=== PATIENT | male | born 1965 | race Caucasian/White ===

== ENCOUNTER 2017-03-24 07:09 | Inpatient (IN) | payer OTHER ==
[2017-03-24] MEDS ORDERED: Scopolamine 1.5 MG Transdermal Patch TOP ONE (08:39)
[2017-03-24] MEDS ORDERED: Propofol 200 MG/20 ML SDV ONE ×2 (08:51→10:05)
[2017-03-24] MEDS ORDERED: fentaNYL 250 MCG/5 ML SDV ONE (08:51)
[2017-03-24] MEDS ORDERED: Lidocaine 2% 5 ML SDV ONE (08:51)
[2017-03-24] MEDS ORDERED: Midazolam 1 MG/ML 2 ML SDV ONE (08:51)
[2017-03-24] MEDS ORDERED: ePHEDrine 50 MG/ML SDV ONE (08:52)
--- NOTE | 2017-03-24 08:52 | PCM.PREANE ---
Preanesthetic Assessment - Procedure Proposed Procedure: Left hip replacement - Anesthesia/Transfusion/Family Hx Anesthesia History: Prior Anesthesia Without Reaction Transfusion History: No Prior Transfusion(s) Intubation History: Unknown - Review of Systems Pulmonary: No Symptoms Cardiovascular: Other (hypertension - treated ) Gastrointestinal: Nausea (with anesthetics - see orders) Neurological: Other (right shoulder pain) Other: Reports: Diabetes (took insulin last pm (20u lantus)), Depression, Anxiety - Physical Assessment Height: 6 ft Weight: 289 lb ASA Class: 3 Mental Status: Alert & Oriented x3 Airway Class: Mallampati = 2 Dentition: Reports: Normal Dentition Thyro-Mental Finger Breadths: 3 Mouth Opening Finger Breadths: 3 ROM/Head Extension: Full Lungs: Clear to auscultation, Normal respiratory effort Cardiovascular: Regular Rate, Regular Rhythm, No Murmurs - Lab Values: Laboratory Last Values POC Glucose 148 mg/dL (60-110) H 03/24/17 07:32 Blood Type A NEGATIVE 03/24/17 07:32 Antibody Screen NEGATIVE 03/24/17 07:32 - Allergies Allergies/Adverse Reactions: Allergies Allergy/AdvReac Type Severity Reaction Status Date / Time Sulfa (Sulfonamide Allergy Rash Verified 12/10/16 17:24 Antibiotics) - Blood Blood Available: Yes Product(s) Available: PRBC - Acknowledgements Anesthesia Type Planned: General Anesthesia Pt an Appropriate Candidate for the Planned Anesthesia: Yes Alternatives and Risks of Anesthesia Discussed w Pt/Guardian: Yes Pt/Guardian Understands and Agrees with Anesthesia Plan: Yes PreAnesthesia Questionnaire - Past Health History Medical/Surgical History: Denies Medical/Surgical History HEENT History: Reports: Other (see below) Other HEENT History: wears glasses Cardiovascular History: Reports: High cholesterol, Hypertension Gastrointestinal History: Reports: Other (see below) Other Gastrointestinal History: occasional heartburn Genitourinary History: Reports: Other (see below) Other Genitourinary History: hx scrotal abscess Musculoskeletal History: Reports: Osteoarthritis Neurological History: Reports: Concussion Psychiatric History: Reports: Anxiety Endocrine/Metabolic History: Reports: Diabetes, type II, Obesity/BMI 30+ - Infectious Disease History Infectious Disease History: Reports: Chicken pox - Past Surgical History Head Surgeries/Procedures: Reports: None Cardiovascular Surgical History: Reports: None GI Surgical History: Reports: Colonoscopy Musculoskeletal Surgical History: Reports: Knee replacement, Shoulder surgery Other Musculoskeletal Surgeries/Procedures:: jihan knee arthroscopies, knee replacement - SUBSTANCE USE Smoking Status *Q: Former Smoker Tobacco Use Within Last Twelve Months: No Second Hand Smoke Exposure: No Days Per Week of Alcohol Use: 0 Recreational Drug Use History: No - HOME MEDS Home Medications: Home Meds Aspirin [Caitlin Chewable Aspirin] 81 mg PO BEDTIME 02/23/15 [History] FLUoxetine [PROzac] 20 mg PO BID 02/23/15 [History] Lisinopril 20 mg PO DAILY 02/23/15 [History] Metoprolol Succinate 50 mg PO DAILY 02/23/15 [History] Canagliflozin/Metformin HCl [Invokamet 50-1,000 mg Tablet] 1 each PO BID [History] Insulin Glarg,Human.Rec.Analog [LantUS Solostar] 20 unit SUBCUT BEDTIME [History] atorvaSTATin Calcium [Atorvastatin Calcium] 80 mg PO BEDTIME 12/10/16 [History] Ascorbic Acid [Vitamin C] 500 mg PO DAILY 12/23/16 [History] Fenofibrate 160 mg PO DAILY 12/23/16 [History] Multivitamin [Multivitamins] 1 tab PO DAILY 12/23/16 [History] - CURRENT (IN HOUSE) MEDS Current Meds: Current Medications Lactated Ringer's (Ringers, Lactated) 1,000 mls @ 100 mls/hr IV ASDIRECTED LIZZY Cefazolin Sodium/Dextrose 2 gm (/ Premix) 50 mls @ 100 mls/hr IV ONETIME ONE Stop: 03/24/17 09:29 Discontinued Medications Scopolamine (Transderm-Scop) 1.5 mg TOP ONETIME ONE Stop: 03/24/17 08:40 Tranexamic Acid (Cyklokapron) Confirm Administered Dose 2,000 mg .ROUTE .STK- MED ONE Stop: 03/23/17 14:58
[2017-03-24] MEDS ORDERED: Lactated Ringers 1,000 ML IV SCH (09:00)
[2017-03-24] MEDS ORDERED: ceFAZolin 2 GM in Premix Bag 1 BAG IV ONE (09:00)
[2017-03-24] MEDS ORDERED: Phenylephrine/Normal Saline 100 MCG/ML 10 ML Syringe ONE (09:27)
[2017-03-24] MEDS ORDERED: Dermabond Prineo 1 Tube ONE (09:48)
[2017-03-24] MEDS ORDERED: HYDROmorphone 2 MG/ML Syringe ONE (09:56)
--- NOTE | 2017-03-24 11:05 | PCM.OPNOTE ---
- General Post-Op/Procedure Note Date of Surgery/Procedure: 03/24/17 Operative Procedure(s): left anterior total hip arthroplasty Findings: severe OA Pre Op Diagnosis: left osteoarthritis Post-Op Diagnosis: same Anesthesia Technique: General ET tube Primary Surgeon: Victorino Herman Mai Micro Photographer: Ruth Ann Matthews Pathology: femoral head EBL in mLs: 500 Complications: none Condition: Good
[2017-03-24] MEDS ORDERED: Ondansetron 4 MG/2 ML SDV IV PRN (11:12)
[2017-03-24] MEDS ORDERED: Aluminum Hydroxide/Magnesium Hydroxide/Simethicone Susp 30 ML Cup PO PRN (11:12)
[2017-03-24] MEDS ORDERED: Ketorolac 15 MG/ML SDV IVPUSH PRN (11:12)
[2017-03-24] MEDS ORDERED: Bisacodyl 10 MG Supp RECTAL PRN (11:12)
[2017-03-24] MEDS: fentaNYL 100 MCG/2 ML SDV IVPUSH PRN ×4 (11:23→11:49)
--- NOTE | 2017-03-24 12:08 | PCM.POSTAN ---
POST ANESTHESIA ASSESSMENT - MENTAL STATUS Mental Status: alert, oriented - RESPIRATORY Respiratory Status: respiratory rate WNL, airway patent, O2 saturation stable - CARDIOVASCULAR CV Status: pulse rate WNL, blood pressure stable - GASTROINTESTINAL GI Status: no symptoms - PAIN Pain Score: 7 - POST OP HYDRATION Hydration Status: adequate & stable - OBSERVATIONS Free Text/Narrative:: no anesthesia problems
[2017-03-24] MEDS: Morphine 10 MG/ML Syringe IVPUSH PRN ×3 (12:27→21:34)
[2017-03-24] MEDS: Acetaminophen/HYDROcodone 325-5 MG Tab PO PRN ×3 (12:27→23:35)
--- NOTE | 2017-03-24 14:51 | PCM.CONS ---
H&P History of Present Illness - General Date of Service: 03/24/17 Admit Problem/Dx: Admission Diagnosis/Problem Admission Diagnosis/Problem Osteoarthritis Source of Information: Patient, Family ( at bedside) History Limitations: Reports: No limitations - History of Present Illness Initial Comments - Free Text/Narative: This 51 year old male with pmh of HTN, dyslipidemia, DM type 2, controlled,, anxiety and depression. He was admitted today for L anterior hip replacement with Dr. Woodson. Hospitalist service consulted due to HTN and DM type 2 management. He has returned from the PACU feeling well. Has some intermittently L hip pain. Denies any chest pain, SOB or palpitations. No N/V. at bedside who helps with history PCP, Dr Paulina Mak. - Related Data Allergies/Adverse Reactions: Allergies Allergy/AdvReac Type Severity Reaction Status Date / Time Sulfa (Sulfonamide Allergy Rash Verified 12/10/16 17:24 Antibiotics) Home Medications: Home Meds Aspirin [Caitlin Chewable Aspirin] 81 mg PO BEDTIME 02/23/15 [History] FLUoxetine [PROzac] 20 mg PO BID 02/23/15 [History] Lisinopril 20 mg PO DAILY 02/23/15 [History] Metoprolol Succinate 50 mg PO DAILY 02/23/15 [History] Canagliflozin/Metformin HCl [Invokamet 50-1,000 mg Tablet] 1 each PO BID [History] Insulin Glarg,Human.Rec.Analog [LantUS Solostar] 20 unit SUBCUT BEDTIME [History] atorvaSTATin Calcium [Atorvastatin Calcium] 80 mg PO BEDTIME 12/10/16 [History] Ascorbic Acid [Vitamin C] 500 mg PO DAILY 12/23/16 [History] Fenofibrate 160 mg PO DAILY 12/23/16 [History] Multivitamin [Multivitamins] 1 tab PO DAILY 12/23/16 [History] Past Medical History - Past Health History Medical/Surgical History: Denies Medical/Surgical History HEENT History: Reports: Other (see below) Other HEENT History: wears glasses Cardiovascular History: Reports: High cholesterol, Hypertension. Denies: Afib, Blood clots/VTE/DVT, CAD, Heart Failure, PA Respiratory History: Reports: None. Denies: Asthma, COPD Gastrointestinal History: Reports: Other (see below) Other Gastrointestinal History: occasional heartburn Genitourinary History: Reports: Other (see below). Denies: Chronic renal insuffiency Other Genitourinary History: hx scrotal abscess Musculoskeletal History: Reports: Osteoarthritis Neurological History: Reports: Concussion Psychiatric History: Reports: Anxiety, Depression Endocrine/Metabolic History: Reports: Diabetes, type II, Obesity/BMI 30+ - Infectious Disease History Infectious Disease History: Reports: Chicken pox - Past Surgical History Head Surgeries/Procedures: Reports: None Cardiovascular Surgical History: Reports: None GI Surgical History: Reports: Colonoscopy Musculoskeletal Surgical History: Reports: Knee replacement, Shoulder surgery Other Musculoskeletal Surgeries/Procedures:: jihan knee arthroscopies, knee replacement Social & Family History - Family History Family Medical History: Noncontributory - Tobacco Use Smoking Status *Q: Former Smoker Second Hand Smoke Exposure: No - Caffeine Use Caffeine Use: Reports: Coffee Caffeine Use Comment: 2 cups/day - Alcohol Use Days Per Week of Alcohol Use: 0 - Recreational Drug Use Recreational Drug Use: No H&P Review of Systems - Review of Systems: Review Of Systems: ROS reveals no pertinent complaints other than HPI. General: Reports: no symptoms. Denies: fever, malaise HEENT: Reports: no symptoms. Denies: post nasal drip, sinus congestion, sore throat Pulmonary: Reports: No Symptoms. Denies: Shortness of Breath, Wheezing, Cough Cardiovascular: Reports: no symptoms. Denies: chest pain, palpitations, edema Gastrointestinal: Reports: No symptoms. Denies: Abdominal pain, Black stool, Bloody stool, Diarrhea Genitourinary: Reports: no symptoms. Denies: dysuria, frequency, burning Musculoskeletal: Reports: joint pain (L hip pain post-operatively) Skin: Reports: no symptoms Psychiatric: Reports: no symptoms Neurological: Reports: No Symptoms Hematologic/Lymphatic: Reports: no symptoms Immunologic: Reports: no symptoms Exam - Exam Exam: See Below - Vital Signs Vital Signs: Last Vital Signs Temp 97.7 F 03/24/17 12:30 Pulse 106 H 03/24/17 14:00 Resp 18 03/24/17 14:00 BP 126/72 03/24/17 14:00 Pulse Ox 96 03/24/17 14:00 Weight: 131.088 kg - Exam Quality Assessment: supplemental oxygen, DVT prophylaxis General: alert, oriented, 4 HEENT: Conjunctiva clear, EACs clear, EOMI, Hearing intact, Mucosa moist & pink , Nares patent, Posterior pharynx clear Lungs: Clear to auscultation, Normal respiratory effort Cardiovascular: regular rate, regular rhythm, normal S1, normal S2. No: irregular rhythm Abdomen: normal bowel sounds Extremities: normal inspection, normal pulses Skin: incision (dresing C/D/I) Neuro Extensive - Mental Status: alert, oriented x3, normal mood/affect, normal cognition Neuro Extensive - Motor, Sensory, Reflexes: CN II-XII intact, normal gait, normal reflexes Psychiatric: alert, normal affect, normal mood - Patient Data Lab Results last 24 hrs: Laboratory Results - last 24 hr 03/24/17 03/24/17 03/24/17 Range/Units 07:32 07:32 12:39 POC Glucose 148 H 178 H (60-110) mg/dL Blood Type A NEGATIVE Antibody Screen NEGATIVE Consult PN Assessment/Plan Procedures: Procedures BLOOD CULTURE FOR BACTERIA (02/23/15) CHEST X-RAY 2VW FRONTAL&LATL (03/03/17) COLONOSCOPY W/LESION REMOVAL (12/25/16) COMPLETE CBC W/AUTO DIFF WBC (03/03/17) COMPREHEN METABOLIC PANEL (12/02/16) CULTURE AEROBIC IDENTIFY (02/23/15) CULTURE OTHR SPECIMN AEROBIC (02/23/15) DRAIN/INJ JOINT/BURSA W/O US (11/16/15) ELECTROCARDIOGRAM TRACING (03/03/17) EMERGENCY DEPT VISIT (12/10/16) EMERGENCY DEPT VISIT (02/23/15) GLUCOSE BLOOD TEST (12/25/16) GLYCOSYLATED HEMOGLOBIN TEST (03/03/17) LIPID PANEL (12/02/16) METABOLIC PANEL TOTAL CA (03/03/17) MICROALBUMIN SEMIQUANT (12/02/16) MICROBE SUSCEPTIBLE MARISELA (02/23/15) NEEDLE LOCALIZATION BY XRAY (11/16/15) PROTHROMBIN TIME (03/03/17) ROUTINE VENIPUNCTURE (03/03/17) THER/PROPH/DIAG INJ SC/IM (12/10/16) THER/PROPH/DIAG IV INF INIT (02/23/15) TISSUE EXAM BY PATHOLOGIST (12/25/16) TX/PRO/DX INJ NEW DRUG ADDON (02/23/15) URINALYSIS AUTO W/SCOPE (03/03/17) US EXAM SCROTUM (02/23/15) VASCULAR STUDY (02/23/15) X-RAY EXAM KNEE 4 OR MORE (11/01/15) X-RAY EXAM OF HIP (11/15/15) X-RAY EXAM OF PELVIS (11/15/15) X-RAY EXAM OF SHOULDER (01/15/17) (1) S/P total hip arthroplasty SNOMED Code(s): 815084831550, 073006525341 Code(s): Z96.649 - PRESENCE OF UNSPECIFIED ARTIFICIAL HIP JOINT Current Visit: Yes Qualifiers: Laterality: left Qualified Code(s): Z96.642 - Presence of left artificial hip joint Assessment:: anterior (2) HTN (hypertension) SNOMED Code(s): 52552640 Code(s): I10 - ESSENTIAL (PRIMARY) HYPERTENSION Current Visit: Yes Qualifiers: Hypertension type: essential hypertension Qualified Code(s): I10 - Essential (primary) hypertension (3) Anxiety SNOMED Code(s): 39249379 Code(s): F41.9 - ANXIETY DISORDER, UNSPECIFIED Current Visit: Yes (4) Depressed SNOMED Code(s): 99026036 Code(s): F32.9 - MAJOR DEPRESSIVE DISORDER, SINGLE EPISODE, UNSPECIFIED Current Visit: Yes Qualifiers: Depression Type: unspecified Qualified Code(s): F32.9 - Major depressive disorder, single episode, unspecified (5) Dyslipidemia SNOMED Code(s): 266152771 Code(s): E78.5 - HYPERLIPIDEMIA, UNSPECIFIED Current Visit: Yes (6) Diabetes mellitus SNOMED Code(s): 39832948 Code(s): E11.9 - TYPE 2 DIABETES MELLITUS WITHOUT COMPLICATIONS Current Visit: No Qualifiers: Diabetes mellitus type: type 2 Diabetes mellitus complication status: without complication Diabetes mellitus block hacker insulin use: with penitentiary use Qualified Code(s): E11.9 - Type 2 diabetes mellitus without complications ; Z79.4 - senior care (current) use of insulin (7) Obesity (BMI 35.0-39.9 without comorbidity) SNOMED Code(s): 666316520, 517951738 Code(s): E66.01 - MORBID (SEVERE) OBESITY DUE TO EXCESS CALORIES Current Visit: No Problem List Initiated/Reviewed/Updated: Yes My Orders last 24 hours: My Active Orders 03/24/17 17:00 Insulin Aspart [NovoLOG] See Protocol SUBCUT TIDAC Plan: This 51 year old male admitted for L anterior total hip arthroplasty 1. S/P L anterior total hip arthroplasty: Orders per Dr Woodson 2. HTN: Continue Lisinopril and Metoprolol. Did stop Toradol due to BUN 37 and Cr 1.2 pre-operatively. Will monitor BMP. 3. DM type 2: Hold Invokamet, may restart on discharge. Continue Lantus at bedtime and add Novolog SSI TIDAC 4. Dyslipidemia: Continue Atorvastatin and Fenofibrate. VTE: Per Ortho when deemed appropriate. Dispo: Per Ortho.
[2017-03-24 16:41] LABS: CHLORIDE,CL 103 mmol/L (98-110); SODIUM,NA 137 mmol/L (136-146)
[2017-03-24] MEDS: Insulin Aspart 100 Units/ML 3 ML Pen SUBCUT SCH (17:12)
[2017-03-24] MEDS: ceFAZolin 2 GM in Premix Bag 1 BAG IV SCH (17:14)
[2017-03-24] MEDS ORDERED: Sodium Chloride 0.9% 2.5 ML Syringe FLUSH PRN (17:18)
[2017-03-24] MEDS ORDERED: Sodium Chloride 0.9% 10 ML Syringe FLUSH PRN (17:18)
[2017-03-24] MEDS ORDERED: CANAGLIFLOZIN PO SCH (21:00)
[2017-03-24] MEDS ORDERED: METFORMIN HCL PO SCH (21:00)
[2017-03-24] MEDS: Insulin Glargine,Human Rec. Analog 100 Units/ML 3 ML Pen SUBCUT SCH (21:43)
[2017-03-24] MEDS: atorvaSTATin 40 MG Tab PO SCH (21:45)
[2017-03-24] MEDS: FLUoxetine 20 MG Cap PO SCH (21:45)
[2017-03-24] MEDS: Docusate Sodium 100 MG Cap PO SCH (21:45)
[2017-03-25] MEDS: ceFAZolin 2 GM in Premix Bag 1 BAG IV SCH (02:13)
[2017-03-25] MEDS: Acetaminophen/HYDROcodone 325-5 MG Tab PO PRN ×4 (04:24→19:12)
[2017-03-25 05:13] LABS: CHLORIDE,CL 98 mmol/L (98-110); SODIUM,NA 133 mmol/L (136-146)
--- NOTE | 2017-03-25 06:27 | OR ---
SURGEON: Victorino Woodson MD DATE OF PROCEDURE: 03/24/2017 PATIENT PORTAL REPRESENTATIVE: LINDSEY Kenny. PREOPERATIVE DIAGNOSIS: Left hip osteoarthritis. POSTOPERATIVE DIAGNOSIS: Left hip osteoarthritis. OPERATION PERFORMED: Left anterior total hip arthroplasty. ANESTHESIA: General. ESTIMATED BLOOD LOSS: 500 mL. SPECIMENS: Femoral head. COMPLICATIONS: None. IMPLANTS: Meagan Continuum trabecular metal shell with cluster holes, 60 mm outer diameter, Vivacit-E neutral liner, 36 mm inner diameter, Fitmore Hip Stem, uncemented B extended offset size 3, BIOLOX delta ceramic femoral head, 36 mm +3.5 neck length. INDICATIONS: The patient is a 51-year-old male with severe arthritis. 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 He has failed conservative management, treated with modification therapy and injections. He has chronic pain on a daily basis hindering his activities. He wished to undergo total hip replacement. He understands the risks, benefits, complications, including but limited to infection, neurovascular injury, continued pain, DVT, PE, stroke, VT, , leg-length discrepancy, fracture dislocation, and he wished to proceed. placed with tracking, reduction, as well as closing. PROCEDURE IN DETAIL: The patient was seen in the preop area. Operative extremity was marked. He was transferred to the operating room and placed supine on the Farrar table. General anesthesia was induced and endotracheal tube was placed. He received preop antibiotics of Ancef. He also received 2 g of TXA. The legs were placed in the leg bars with narrow perineal post. Left hip was prepped and draped in sterile fashion using alcohol followed by ChloraPrep with Ioban covering. A formal time- out was taken to identify correct patient, procedure, and extremity. A 10 cm incision starting just lateral to the ASIS, going obliquely down the femur was made. Dissection was carried down to subcutaneous tissues. Hemostasis was obtained. The fascia overlying the TFL was opened. The interval between the TFL and sartorius and deep between the abductors and rectus was opened. The anterior vessels were coagulated and the vastus fascia was opened. A deep Luis retractor was placed and then the capsule was held and with #2 FiberWire. The neck was cut from the saddle region to about 1 cm above the lesser trochanter and the head was removed. The remnants of labrum were removed. The patient was found to have severe osteoarthritis. The pulvinar was removed. Head measured 54 mm, and under fluoroscopic control after the bed, made sure that the pelvis was level. Sequential reaming from 53 up to 59 mm was made. medialize very much, we reamed superior medially to get excellent peripheral fit and the wound was irrigated and a trabecular metal shell cluster holes, 60 mm outer diameter was placed. The screw hole straight superiorly in 45 degrees of abduction and 10 degrees of anteversion. This had excellent press fit and the screw was not needed. Wound was irrigated, dried, and a neutral liner was impacted. Leg was then externally rotated, abducted, and extended with femoral lift was placed. The medial capsule was released. The superior capsule, obturator internus, and piriformis were released and a sequential was utilized. The hip was broached with the starter rasp with the size 3, size 4 sat very proud and so 3 was placed. It was trialed, we reduced to zero neck length. with size B not extended. Printed overlay technique showed offset to be decreased about 3-4 mm in the leg length to be approximately equal. Hip was then dislocated, it was rebroached up to a size 3 and a Fitmore B extended offset size [address] Following the marshall version it was trailed to reduce the zero neck length. This showed it to be 1-2 mm shorter than the opposite leg, but the offset to be equal, and there was a little shock with pulling on it. So therefore for stability a neck 36 mm diameter head was impacted. It was then reduced. The x-ray showed that the canal to be filled with the stem. Wound was thoroughly irrigated. Two tag sutures were tied together. The fascia was closed with #1 Vicryl. Subcutaneous tissue was closed with a running 2-0 Stratafix. The skin was closed with running 4-0 Monocryl. Dermabond, tape, and Aquacel dressing was placed. The patient was extubated in the operating room, transferred to the recovery room in stable condition. Sponge, needle counts were correct at the end of the case. There were no complications. PLAN: The patient will follow postop rehab protocol, taking aspirin for DVT prophylaxis. BENJAMIN BANDA /[id number]
[2017-03-25] MEDS: Insulin Aspart 100 Units/ML 3 ML Pen SUBCUT SCH ×3 (07:05→16:50)
--- NOTE | 2017-03-25 07:35 | PCM.SN ---
- Free Text/Narrative Note: S: More pain today, ambulated last night, no other issues. Tolerating PO, no cp/sob O: afebrile, vital signs stable, awake/alert dressing dlean/dry/intact, no swelling in leg. 2+ pedal pulse with normal sensation and motor in leg HGB 11.8 A/P: POD #1 left TOD with acute post-op blood loss anemia - full weight bearing, PT - SCDs, aspirin for DVT prophylaxis - plan home when able over next several days.
--- NOTE | 2017-03-25 08:11 | PCM.CONSN ---
- General Info Date of Service: 03/25/17 Admission Dx/Problem (Free Text): Admission Diagnosis/Problem Admission Diagnosis/Problem Osteoarthritis Subjective Update: Having more hip pain today. No complaints of chest pain or SOB. no palpitations. Functional Status: Reports: tolerating diet, ambulating, urinating - Review of Systems General: Reports: No Symptoms. Denies: Fever HEENT: Reports: no symptoms. Denies: sinus congestion, sore throat Pulmonary: Reports: no symptoms. Denies: shortness of breath, cough, sputum Cardiovascular: Reports: No Symptoms. Denies: Chest Pain, Edema Gastrointestinal: Reports: No symptoms. Denies: Abdominal pain, Nausea, Vomiting Neurological: Reports: No Symptoms Psychiatric: Reports: no symptoms - Patient Data Vitals - most recent: Last Vital Signs Temp 98.8 F 03/25/17 04:00 Pulse 102 H 03/25/17 04:00 Resp 18 03/25/17 04:00 BP 115/75 03/25/17 04:00 Pulse Ox 96 03/25/17 04:00 Weight - most recent: 131.088 kg I&O - last 24 hours: Intake & Output 03/24/17 03/25/17 03/25/17 22:59 06:59 14:59 Intake Total 1850 1250 Output Total 1100 Balance 1850 150 Lab Results last 24 hrs: Laboratory Results - last 24 hr 03/24/17 03/24/17 03/24/17 Range/Units 07:32 12:39 16:07 Hgb (13.0-17.0) g/dL Hct (38.0-50.0) % Sodium 137 (136-146) mmol/L Potassium 4.5 (3.5-5.1) mmol/L Chloride 103 (98-110) mmol/L Carbon Dioxide 22 (21-31) mmol/L BUN 24 H (6.0-23.0) mg/dL Creatinine 1.0 (0.6-1.5) mg/dL Est Cr Clr Drug Dosing 93.77 mL/min Estimated GFR (MDRD) > 60.0 ml/min Glucose 187 H (60-110) mg/dL POC Glucose 178 H (60-110) mg/dL Calcium 9.1 (8.8-10.8) mg/dL Total Bilirubin 1.1 (0.1-1.5) mg/dL AST 25 (5-40) IU/L ALT 22 (8-54) IU/L Alkaline Phosphatase 40 (40-150) Total Protein 6.6 (6.0-8.0) g/dL Albumin 4.3 (3.5-5.0) g/dL Globulin 2.3 (2.0-3.5) g/dL Albumin/Globulin Ratio 1.9 (1.3-2.8) Blood Type A NEGATIVE Antibody Screen NEGATIVE 03/24/17 03/24/17 03/25/17 Range/Units 16:11 21:01 04:20 Hgb 11.8 L (13.0-17.0) g/dL Hct 35.9 L (38.0-50.0) % Sodium (136-146) mmol/L Potassium (3.5-5.1) mmol/L Chloride (98-110) mmol/L Carbon Dioxide (21-31) mmol/L BUN (6.0-23.0) mg/dL Creatinine (0.6-1.5) mg/dL Est Cr Clr Drug Dosing mL/min Estimated GFR (MDRD) ml/min Glucose (60-110) mg/dL POC Glucose 192 H 149 H (60-110) mg/dL Calcium (8.8-10.8) mg/dL Total Bilirubin (0.1-1.5) mg/dL AST (5-40) IU/L ALT (8-54) IU/L Alkaline Phosphatase (40-150) Total Protein (6.0-8.0) g/dL Albumin (3.5-5.0) g/dL Globulin (2.0-3.5) g/dL Albumin/Globulin Ratio (1.3-2.8) Blood Type Antibody Screen 03/25/17 03/25/17 Range/Units 04:20 06:41 Hgb (13.0-17.0) g/dL Hct (38.0-50.0) % Sodium 133 L (136-146) mmol/L Potassium 4.4 (3.5-5.1) mmol/L Chloride 98 (98-110) mmol/L Carbon Dioxide 20 L (21-31) mmol/L BUN 22 (6.0-23.0) mg/dL Creatinine 1.1 (0.6-1.5) mg/dL Est Cr Clr Drug Dosing 85.24 mL/min Estimated GFR (MDRD) > 60.0 ml/min Glucose 160 H (60-110) mg/dL POC Glucose 227 H (60-110) mg/dL Calcium 8.7 L (8.8-10.8) mg/dL Total Bilirubin (0.1-1.5) mg/dL AST (5-40) IU/L ALT (8-54) IU/L Alkaline Phosphatase (40-150) Total Protein (6.0-8.0) g/dL Albumin (3.5-5.0) g/dL Globulin (2.0-3.5) g/dL Albumin/Globulin Ratio (1.3-2.8) Blood Type Antibody Screen Med Orders - Current: Current Medications Hydrocodone Bitart/Acetaminophen ([place] 325-5 Mg) 1 - 2 tab PO Q4H PRN PRN Reason: Pain Last Admin: 03/25/17 04:24 Dose: 2 tab Al Hydroxide/Mg Hydroxide (Mag-Al Plus) 30 ml PO Q4H PRN PRN Reason: indigestion Ascorbic Acid (Vitamin C) 500 mg PO DAILY [facility] Aspirin (Aspirin) 325 mg PO BID [facility] Atorvastatin Calcium (Lipitor) 80 mg PO BEDTIME [facility] Last Admin: 03/24/17 21:45 Dose: 80 mg Bisacodyl (Dulcolax) 10 mg RECTAL DAILY PRN PRN Reason: Constipation Docusate Sodium (Colace) 100 mg PO BID [facility] Last Admin: 03/24/17 21:45 Dose: 100 mg Fentanyl (Sublimaze) 50 mcg IVPUSH Q5M PRN PRN Reason: Pain (severe 7-10) Stop: 03/25/17 10:04 Last Admin: 03/24/17 11:49 Dose: 50 mcg Fluoxetine HCl (Prozac) 20 mg PO BID [facility] Last Admin: 03/24/17 21:45 Dose: 20 mg Insulin Aspart (Novolog) 0 unit SUBCUT TIDAC [facility] PRN Reason: Protocol Last Admin: 03/25/17 07:05 Dose: 2 unit Insulin Glargine (Lantus Solostar) 20 units SUBCUT BEDTIME [facility] Last Admin: 03/24/17 21:43 Dose: 20 units Lisinopril (Prinivil) 20 mg PO DAILY [facility] Metoprolol Succinate (Toprol Xl) 50 mg PO DAILY [facility] Morphine Sulfate (Morphine) 1 - 3 mg IVPUSH Q3H PRN PRN Reason: Pain Last Admin: 03/24/17 21:34 Dose: 3 mg Multivitamins/Minerals (Thera M Plus) 1 tab PO DAILY [facility] Ondansetron HCl (Zofran) 4 mg IV Q6HR PRN PRN Reason: NAUSEA/VOMITING Fenofibrate 160 Mg 1 each PO DAILY [facility] Sodium Chloride (Saline Flush) 10 ml FLUSH ASDIRECTED PRN PRN Reason: Keep Vein Open Sodium Chloride (Saline Flush) 2.5 ml FLUSH ASDIRECTED PRN PRN Reason: Keep Vein Open Discontinued Medications Ephedrine Sulfate (Ephedrine Sulfate) Confirm Administered Dose 50 mg .ROUTE .STK-MED ONE Stop: 03/24/17 08:53 Fentanyl (Sublimaze) Confirm Administered Dose 250 mcg .ROUTE .STK-MED ONE Stop: 03/24/17 08:52 Hydromorphone HCl (Dilaudid) Confirm Administered Dose 2 mg .ROUTE .STK-MED ONE Stop: 03/24/17 09:57 Lactated Ringer's (Ringers, Lactated) 1,000 mls @ 100 mls/hr IV ASDIRECTED [facility] Last Admin: 03/24/17 08:49 Dose: 100 mls/hr Cefazolin Sodium/Dextrose 2 gm (/ Premix) 50 mls @ 100 mls/hr IV ONETIME ONE Stop: 03/24/17 09:29 Last Admin: 03/24/17 12:40 Dose: Not Given Cefazolin Sodium/Dextrose 2 gm (/ Premix) 50 mls @ 100 mls/hr IV Q8H [facility] Stop: 03/25/17 01:59 Last Admin: 03/25/17 02:13 Dose: 100 mls/hr Ketorolac Tromethamine (Toradol) 15 mg IVPUSH Q6H PRN PRN Reason: Pain Stop: 03/25/17 09:00 Lidocaine (Xylocaine-Mpf 2%) Confirm Administered Dose 10 ml .ROUTE .STK-MED ONE Stop: 03/24/17 08:52 Midazolam HCl (Versed 1 Mg/Ml) Confirm Administered Dose 2 mg .ROUTE .STK-MED ONE Stop: 03/24/17 08:52 Octyl Cyanoacrylate (Dermabond Prineo) 1 applic .ROUTE .STK-MED ONE Stop: 03/24/17 09:49 Canagliflozin/Metformin Hcl [ Invokamet 50-1,000 Mg Tablet 1 each PO BID [facility] Phenylephrine HCl (Phenylephrine In Ns 100 Mcg/Ml) Confirm Administered Dose 1 mg .ROUTE .STK-MED ONE Stop: 03/24/17 09:28 Propofol (Diprivan 20 Ml) Confirm Administered Dose 400 mg .ROUTE .STK-MED ONE Stop: 03/24/17 08:52 Propofol (Diprivan 20 Ml) Confirm Administered Dose 200 mg .ROUTE .STK-MED ONE Stop: 03/24/17 10:06 Scopolamine (Transderm-Scop) 1.5 mg TOP ONETIME ONE Stop: 03/24/17 08:40 Last Admin: 03/24/17 08:52 Dose: 1.5 mg Tranexamic Acid (Cyklokapron) Confirm Administered Dose 2,000 mg .ROUTE .STK- MED ONE Stop: 03/23/17 14:58 - Exam General: alert, oriented, cooperative Lungs: Clear to auscultation, Normal respiratory effort Cardiovascular: Regular Rate, Regular Rhythm Abdomen: bowel sounds present, soft, no tenderness, no distension Extremities: no edema, normal pulses Consult PN Assessment/Plan Procedures: Procedures BLOOD CULTURE FOR BACTERIA (02/23/15) CHEST X-RAY 2VW FRONTAL&LATL (03/03/17) COLONOSCOPY W/LESION REMOVAL (12/25/16) COMPLETE CBC W/AUTO DIFF WBC (03/03/17) COMPREHEN METABOLIC PANEL (12/02/16) CULTURE AEROBIC IDENTIFY (02/23/15) CULTURE OTHR SPECIMN AEROBIC (02/23/15) DRAIN/INJ JOINT/BURSA W/O US (11/16/15) ELECTROCARDIOGRAM TRACING (03/03/17) EMERGENCY DEPT VISIT (12/10/16) EMERGENCY DEPT VISIT (02/23/15) GLUCOSE BLOOD TEST (12/25/16) GLYCOSYLATED HEMOGLOBIN TEST (03/03/17) LIPID PANEL (12/02/16) METABOLIC PANEL TOTAL CA (03/03/17) MICROALBUMIN SEMIQUANT (12/02/16) MICROBE SUSCEPTIBLE MARISELA (02/23/15) NEEDLE LOCALIZATION BY XRAY (11/16/15) PROTHROMBIN TIME (03/03/17) ROUTINE VENIPUNCTURE (03/03/17) THER/PROPH/DIAG INJ SC/IM (12/10/16) THER/PROPH/DIAG IV INF INIT (02/23/15) TISSUE EXAM BY PATHOLOGIST (12/25/16) TX/PRO/DX INJ NEW DRUG ADDON (02/23/15) URINALYSIS AUTO W/SCOPE (03/03/17) US EXAM SCROTUM (02/23/15) VASCULAR STUDY (02/23/15) X-RAY EXAM KNEE 4 OR MORE (11/01/15) X-RAY EXAM OF HIP (11/15/15) X-RAY EXAM OF PELVIS (11/15/15) X-RAY EXAM OF SHOULDER (01/15/17) (1) S/P total hip arthroplasty SNOMED Code(s): 323015896775, 117848900476 Code(s): Z96.649 - PRESENCE OF UNSPECIFIED ARTIFICIAL HIP JOINT Current Visit: Yes Qualifiers: Laterality: left Qualified Code(s): Z96.642 - Presence of left artificial hip joint (2) HTN (hypertension) SNOMED Code(s): 14092048 Code(s): I10 - ESSENTIAL (PRIMARY) HYPERTENSION Current Visit: Yes Qualifiers: Hypertension type: essential hypertension Qualified Code(s): I10 - Essential (primary) hypertension (3) Anxiety SNOMED Code(s): 77275750 Code(s): F41.9 - ANXIETY DISORDER, UNSPECIFIED Current Visit: Yes (4) Depressed SNOMED Code(s): 64755819 Code(s): F32.9 - MAJOR DEPRESSIVE DISORDER, SINGLE EPISODE, UNSPECIFIED Current Visit: Yes Qualifiers: Depression Type: unspecified Qualified Code(s): F32.9 - Major depressive disorder, single episode, unspecified (5) Dyslipidemia SNOMED Code(s): 200022330 Code(s): E78.5 - HYPERLIPIDEMIA, UNSPECIFIED Current Visit: Yes (6) Diabetes mellitus SNOMED Code(s): 92065666 Code(s): E11.9 - TYPE 2 DIABETES MELLITUS WITHOUT COMPLICATIONS Current Visit: No Qualifiers: Diabetes mellitus type: type 2 Diabetes mellitus complication status: without complication Diabetes mellitus mcfp insulin use: with terminal gauger use Qualified Code(s): E11.9 - Type 2 diabetes mellitus without complications ; Z79.4 - custodial (current) use of insulin (7) Obesity (BMI 35.0-39.9 without comorbidity) SNOMED Code(s): 900061469, 546465981 Code(s): E66.01 - MORBID (SEVERE) OBESITY DUE TO EXCESS CALORIES Current Visit: No Problem List Initiated/Reviewed/Updated: Yes My Orders last 24 hours: My Active Orders 03/24/17 17:00 Insulin Aspart [NovoLOG] See Protocol SUBCUT TIDAC 03/24/17 17:09 Blood Glucose Check, Bedside [RC] TIDAC Plan: This 51 year old male admitted for L anterior total hip arthroplasty 1. S/P L anterior total hip arthroplasty: Orders per Dr Woodson 2. HTN: Continue Lisinopril and Metoprolol. BMP WNL. 3. DM type 2: Hold Invokamet, may restart on discharge. Continue Lantus at bedtime and add Novolog SSI TIDAC 4. Dyslipidemia: Continue Atorvastatin and Fenofibrate. VTE: Per Ortho when deemed appropriate. Dispo: Per Ortho.
--- NOTE | 2017-03-25 08:41 | PCM48HPAN ---
Post Anesthesia Note - EVALUATION WITHIN 48HRS OF ANESTHETIC Vital Signs in Normal Range: Yes Patient Participated in Evaluation: Yes Respiratory Function Stable: Yes Airway Patent: Yes Cardiovascular Function Stable: Yes Hydration Status Stable: Yes Pain Control Satisfactory: Yes Nausea and Vomiting Control Satisfactory: Yes Mental Status Recovered: Yes - COMMENTS/OBSERVATIONS Free Text/Narrative:: Pt denies problems or questions on anesthesia. Did refuse pain medication last evening and realized he needs to comply with pain management plan to avoid spikes in pain level. Reports that scopolamine patch very effective for controlling nausea.
[2017-03-25] MEDS: Docusate Sodium 100 MG Cap PO SCH ×2 (09:32→20:56)
[2017-03-25] MEDS: Metoprolol Succinate 50 MG Tab.ER PO SCH (09:32)
[2017-03-25] MEDS: Aspirin 325 MG Tab PO SCH ×2 (09:32→20:56)
[2017-03-25] MEDS: Ascorbic Acid 500 MG Tab PO SCH (09:33)
[2017-03-25] MEDS: FLUoxetine 20 MG Cap PO SCH ×2 (09:33→20:56)
[2017-03-25] MEDS: Lisinopril 10 MG Tab PO SCH (09:33)
[2017-03-25] MEDS: Multivitamins with Iron/Calcium/Folic Acid/Minerals Tab PO SCH (10:52)
--- NOTE | 2017-03-25 15:06 | PCM.DCSUM1 ---
Discharge Summary - Hospital Course Free Text/Narrative:: patient was admitted and underwent uneventful total hip arthroplasty. Postoperatively he was admitted to the floor, his pain was controlled, his diet was advanced, he participated in therapy with weightbearing as tolerated. He did well and was subsequently discharged to home. - Discharge Data Discharge Date: 03/25/17 Discharge Disposition: Home, Self-Care 01 Condition: Good - Patient Summary/Data Operative Procedure(s) Performed: left anterior total hip arthroplasty Consults: Consultations 03/24/17 11:11 Consult to Physician [CONS] Routine 03/24/17 11:12 PT Evaluation and Treatment [CONS] Routine - Patient Instructions Diet: Usual Diet as Tolerated Activity: Apply Ice, As Tolerated, Full Weight Bearing, No Strenuous Activities Driving: Do Not Drive Showering/Bathing: May Shower Wound/Incision Care: Do NOT Change Dressing Notify Provider of: Fever, Swelling and Redness, Drainage - Discharge Plan Home Medications: Home Meds Aspirin [Caitlin Chewable Aspirin] 81 mg PO BEDTIME 02/23/15 [History] FLUoxetine [PROzac] 20 mg PO BID 02/23/15 [History] Lisinopril 20 mg PO DAILY 02/23/15 [History] Metoprolol Succinate 50 mg PO DAILY 02/23/15 [History] Canagliflozin/Metformin HCl [Invokamet 50-1,000 mg Tablet] 1 each PO BID [History] Insulin Glarg,Human.Rec.Analog [LantUS Solostar] 20 unit SUBCUT BEDTIME [History] atorvaSTATin Calcium [Atorvastatin Calcium] 80 mg PO BEDTIME 12/10/16 [History] Ascorbic Acid [Vitamin C] 500 mg PO DAILY 12/23/16 [History] Fenofibrate 160 mg PO DAILY 12/23/16 [History] Multivitamin [Multivitamins] 1 tab PO DAILY 12/23/16 [History] Referrals: Ruth Ann Matthews PA [Physician Machine Installer] - 04/03/17 8:45 am - Discharge Summary/Plan Comment DC Time >30 min.: No - Patient Data Vitals - Most Recent: Last Vital Signs Temp 36.3 C 03/25/17 12:00 Pulse 112 H 03/25/17 12:00 Resp 16 03/25/17 12:00 BP 120/70 03/25/17 12:00 Pulse Ox 94 L 03/25/17 12:00 Weight - Most Recent: 131.088 kg I&O - Last 24 hours: Intake & Output 03/25/17 03/25/17 03/25/17 06:59 14:59 22:59 Intake Total 1250 Output Total 1100 Balance 150 Lab Results - Last 24 hrs: Laboratory Results - last 24 hr 03/24/17 03/24/17 03/24/17 Range/Units 16:07 16:11 21:01 Hgb (13.0-17.0) g/dL Hct (38.0-50.0) % Sodium 137 (136-146) mmol/L Potassium 4.5 (3.5-5.1) mmol/L Chloride 103 (98-110) mmol/L Carbon Dioxide 22 (21-31) mmol/L BUN 24 H (6.0-23.0) mg/dL Creatinine 1.0 (0.6-1.5) mg/dL Est Cr Clr Drug Dosing 93.77 mL/min Estimated GFR (MDRD) > 60.0 ml/min Glucose 187 H (60-110) mg/dL POC Glucose 192 H 149 H (60-110) mg/dL Calcium 9.1 (8.8-10.8) mg/dL Total Bilirubin 1.1 (0.1-1.5) mg/dL AST 25 (5-40) IU/L ALT 22 (8-54) IU/L Alkaline Phosphatase 40 (40-150) Total Protein 6.6 (6.0-8.0) g/dL Albumin 4.3 (3.5-5.0) g/dL Globulin 2.3 (2.0-3.5) g/dL Albumin/Globulin Ratio 1.9 (1.3-2.8) 03/25/17 03/25/17 03/25/17 Range/Units 04:20 04:20 06:41 Hgb 11.8 L (13.0-17.0) g/dL Hct 35.9 L (38.0-50.0) % Sodium 133 L (136-146) mmol/L Potassium 4.4 (3.5-5.1) mmol/L Chloride 98 (98-110) mmol/L Carbon Dioxide 20 L (21-31) mmol/L BUN 22 (6.0-23.0) mg/dL Creatinine 1.1 (0.6-1.5) mg/dL Est Cr Clr Drug Dosing 85.24 mL/min Estimated GFR (MDRD) > 60.0 ml/min Glucose 160 H (60-110) mg/dL POC Glucose 227 H (60-110) mg/dL Calcium 8.7 L (8.8-10.8) mg/dL Total Bilirubin (0.1-1.5) mg/dL AST (5-40) IU/L ALT (8-54) IU/L Alkaline Phosphatase (40-150) Total Protein (6.0-8.0) g/dL Albumin (3.5-5.0) g/dL Globulin (2.0-3.5) g/dL Albumin/Globulin Ratio (1.3-2.8) 03/25/17 Range/Units 11:25 Hgb (13.0-17.0) g/dL Hct (38.0-50.0) % Sodium (136-146) mmol/L Potassium (3.5-5.1) mmol/L Chloride (98-110) mmol/L Carbon Dioxide (21-31) mmol/L BUN (6.0-23.0) mg/dL Creatinine (0.6-1.5) mg/dL Est Cr Clr Drug Dosing mL/min Estimated GFR (MDRD) ml/min Glucose (60-110) mg/dL POC Glucose 170 H (60-110) mg/dL Calcium (8.8-10.8) mg/dL Total Bilirubin (0.1-1.5) mg/dL AST (5-40) IU/L ALT (8-54) IU/L Alkaline Phosphatase (40-150) Total Protein (6.0-8.0) g/dL Albumin (3.5-5.0) g/dL Globulin (2.0-3.5) g/dL Albumin/Globulin Ratio (1.3-2.8) Med Orders - Current: Current Medications Hydrocodone Bitart/Acetaminophen ([place] 325-5 Mg) 1 - 2 tab PO Q4H PRN PRN Reason: Pain Last Admin: 03/25/17 14:08 Dose: 2 tab Al Hydroxide/Mg Hydroxide (Mag-Al Plus) 30 ml PO Q4H PRN PRN Reason: indigestion Ascorbic Acid (Vitamin C) 500 mg PO DAILY [facility] Last Admin: 03/25/17 09:33 Dose: 500 mg Aspirin (Aspirin) 325 mg PO BID [facility] Last Admin: 03/25/17 09:32 Dose: 325 mg Atorvastatin Calcium (Lipitor) 80 mg PO BEDTIME [facility] Last Admin: 03/24/17 21:45 Dose: 80 mg Bisacodyl (Dulcolax) 10 mg RECTAL DAILY PRN PRN Reason: Constipation Docusate Sodium (Colace) 100 mg PO BID [facility] Last Admin: 03/25/17 09:32 Dose: 100 mg Fluoxetine HCl (Prozac) 20 mg PO BID [facility] Last Admin: 03/25/17 09:33 Dose: 20 mg Insulin Aspart (Novolog) 0 unit SUBCUT TIDAC [facility] PRN Reason: Protocol Last Admin: 03/25/17 12:03 Dose: 1 unit Insulin Glargine (Lantus Solostar) 20 units SUBCUT BEDTIME [facility] Last Admin: 03/24/17 21:43 Dose: 20 units Lisinopril (Prinivil) 20 mg PO DAILY [facility] Last Admin: 03/25/17 09:33 Dose: 20 mg Metoprolol Succinate (Toprol Xl) 50 mg PO DAILY [facility] Last Admin: 03/25/17 09:32 Dose: 50 mg Morphine Sulfate (Morphine) 1 - 3 mg IVPUSH Q3H PRN PRN Reason: Pain Last Admin: 03/24/17 21:34 Dose: 3 mg Multivitamins/Minerals (Thera M Plus) 1 tab PO DAILY [facility] Last Admin: 03/25/17 10:52 Dose: 1 tab Ondansetron HCl (Zofran) 4 mg IV Q6HR PRN PRN Reason: NAUSEA/VOMITING Fenofibrate 160 Mg 1 each PO DAILY [facility] Last Admin: 03/25/17 09:35 Dose: Not Given Sodium Chloride (Saline Flush) 10 ml FLUSH ASDIRECTED PRN PRN Reason: Keep Vein Open Sodium Chloride (Saline Flush) 2.5 ml FLUSH ASDIRECTED PRN PRN Reason: Keep Vein Open Discontinued Medications Ephedrine Sulfate (Ephedrine Sulfate) Confirm Administered Dose 50 mg .ROUTE .STK-MED ONE Stop: 03/24/17 08:53 Fentanyl (Sublimaze) Confirm Administered Dose 250 mcg .ROUTE .STK-MED ONE Stop: 03/24/17 08:52 Fentanyl (Sublimaze) 50 mcg IVPUSH Q5M PRN PRN Reason: Pain (severe 7-10) Stop: 03/25/17 10:04 Last Admin: 03/24/17 11:49 Dose: 50 mcg Hydromorphone HCl (Dilaudid) Confirm Administered Dose 2 mg .ROUTE .STK-MED ONE Stop: 03/24/17 09:57 Lactated Ringer's (Ringers, Lactated) 1,000 mls @ 100 mls/hr IV ASDIRECTED [facility] Last Admin: 03/24/17 08:49 Dose: 100 mls/hr Cefazolin Sodium/Dextrose 2 gm (/ Premix) 50 mls @ 100 mls/hr IV ONETIME ONE Stop: 03/24/17 09:29 Last Admin: 03/24/17 12:40 Dose: Not Given Cefazolin Sodium/Dextrose 2 gm (/ Premix) 50 mls @ 100 mls/hr IV Q8H [facility] Stop: 03/25/17 01:59 Last Admin: 03/25/17 02:13 Dose: 100 mls/hr Ketorolac Tromethamine (Toradol) 15 mg IVPUSH Q6H PRN PRN Reason: Pain Stop: 03/25/17 09:00 Lidocaine (Xylocaine-Mpf 2%) Confirm Administered Dose 10 ml .ROUTE .STK-MED ONE Stop: 03/24/17 08:52 Midazolam HCl (Versed 1 Mg/Ml) Confirm Administered Dose 2 mg .ROUTE .STK-MED ONE Stop: 03/24/17 08:52 Octyl Cyanoacrylate (Dermabond Prineo) 1 applic .ROUTE .STK-MED ONE Stop: 03/24/17 09:49 Canagliflozin/Metformin Hcl [ Invokamet 50-1,000 Mg Tablet 1 each PO BID [facility] Phenylephrine HCl (Phenylephrine In Ns 100 Mcg/Ml) Confirm Administered Dose 1 mg .ROUTE .STK-MED ONE Stop: 03/24/17 09:28 Propofol (Diprivan 20 Ml) Confirm Administered Dose 400 mg .ROUTE .STK-MED ONE Stop: 03/24/17 08:52 Propofol (Diprivan 20 Ml) Confirm Administered Dose 200 mg .ROUTE .STK-MED ONE Stop: 03/24/17 10:06 Scopolamine (Transderm-Scop) 1.5 mg TOP ONETIME ONE Stop: 03/24/17 08:40 Last Admin: 03/24/17 08:52 Dose: 1.5 mg Tranexamic Acid (Cyklokapron) Confirm Administered Dose 2,000 mg .ROUTE .STK- MED ONE Stop: 03/23/17 14:58 *Q Meaningful Use (DIS) - VTE *Q VTE Criteria *Q: - Stroke *Q Stroke Criteria *Q: - AMI *Q AMI Criteria *Q:
[2017-03-25] MEDS: atorvaSTATin 40 MG Tab PO SCH (20:56)
[2017-03-25] MEDS: Insulin Glargine,Human Rec. Analog 100 Units/ML 3 ML Pen SUBCUT SCH (21:04)
[2017-03-26] MEDS: Acetaminophen/HYDROcodone 325-5 MG Tab PO PRN ×2 (02:49→11:42)
[2017-03-26] MEDS: Insulin Aspart 100 Units/ML 3 ML Pen SUBCUT SCH ×2 (07:14→11:50)
--- NOTE | 2017-03-26 07:32 | PCM.SN ---
- Free Text/Narrative Note: S: patient is doing well with minimal issues. His pain is controlled. He has ambulated multiple times no issues. He is tolerating oral pain medications as well as diet. No chest pain or shortness of breath. O: afebrile, vital signs stable Dressing is clean, dry, intact with no drainage or erythema. There is minimal swelling in the thigh. He is normal station and motor distally. A/P: postoperative day #2 left total hip replacement - Weightbearing as tolerated, physical therapy - Aspirin and SCDs for DVT prophylaxis - discharge to home today
[2017-03-26 08:52] VITALS: BP 102/72
[2017-03-26] MEDS: Aspirin 325 MG Tab PO SCH (09:14)
[2017-03-26] MEDS: Ascorbic Acid 500 MG Tab PO SCH (09:14)
[2017-03-26] MEDS: Multivitamins with Iron/Calcium/Folic Acid/Minerals Tab PO SCH (09:15)
[2017-03-26] MEDS: FLUoxetine 20 MG Cap PO SCH (09:15)
[2017-03-26] MEDS: Docusate Sodium 100 MG Cap PO SCH (09:15)
[2017-03-26] MEDS: Lisinopril 10 MG Tab PO SCH (10:08)
[2017-03-26] MEDS: Metoprolol Succinate 50 MG Tab.ER PO SCH (10:08)
--- NOTE | 2017-03-30 11:43 | CR ---
EXAMINATION: Left total hip HISTORY: Arthroplasty COMPARISON: None TECHNIQUE: 3 fluoroscopic images FINDINGS/IMPRESSION: Postoperative control films demonstrate left total hip hardware in good positio n and alignment. Postoperative soft tissue changes noted.
== END 2017-03-26 16:27 | disposition home or self-care (01) | DRG 470 ==
LOC: MW.MS 07:09
PROVIDERS: ADMIT Orthopaedic Surgery; ATTEND Orthopaedic Surgery
PROC: 0SRB03A Replacement of Left Hip Joint with Ceramic Synthetic Substitute, Uncemented, Open Approach (ICD-10-PCS; principal; 2017-03-24)
DX: M16.12 Unilateral primary osteoarthritis, left hip (principal); G89.29 Other chronic pain; I10 Essential (primary) hypertension; E11.9 Type 2 diabetes mellitus without complications; F32.9 Major depressive disorder, single episode, unspecified; F41.9 Anxiety disorder, unspecified; E66.01 Morbid (severe) obesity due to excess calories; Z68.35 Body mass index [BMI] 35.0-35.9, adult; Z87.891 Personal history of nicotine dependence; Z79.4 Long term (current) use of insulin; Z79.82 Long term (current) use of aspirin; Z88.2 Allergy status to sulfonamides; Z96.659 Presence of unspecified artificial knee joint; M91.10 Juvenile osteochondrosis of head of femur [Legg-Calve-Perthes], unspecified leg
CPT/HCPCS: 01214; 36415; 76000; 76000-26; 80048; 80053; 82962; 85014; 85018; 86850; 86900; 86901; 88305; 97110-GP; 97116-GP; 97161-GP; 97530-GP; A9270-GY; C1776; J0690; J1170; J1815-GY; J2250; J2270; J2704; J3010; J7120

== ENCOUNTER → 2017-04-03 | Outpatient (CLI) | payer OTHER ==
--- NOTE | 2017-04-03 10:17 | CR ---
EXAMINATION: Pelvis and left hip HISTORY: Osteoarthritis COMPARISON: 11/15/2015 TECHNIQUE: AP pelvis and 2 views of the left hip FINDINGS: There is no acute osseous abnormality, dislocation, or fracture. Left total hip hardware i s demonstrated in stable position and alignment. The right hip joint spaces appear preserved. No fra cture or acute osseous abnormality. The SI joints are symmetric. IMPRESSION: Stable left total hip hardware.
== END ==
LOC: MW.CHORTHO 07:50
PROVIDERS: ATTEND Physician Assistant
DX: M16.12 Unilateral primary osteoarthritis, left hip (principal); Z96.642 Presence of left artificial hip joint
CPT/HCPCS: 73502-26-LT; 73502-LT

== ENCOUNTER 2018-07-13 12:49 | Emergency (ER) | payer OTHER ==
[2018-07-13] MEDS ORDERED: cefTRIAXone 1,000 MG in Lidocaine 1% 4 ML IM ONE (13:08)
[2018-07-13] MEDS ORDERED: Diphtheria,Pertussis(Acell),Tetanus Vaccine 0.5 ML Syringe IM ONE (13:08)
[2018-07-13] MEDS ORDERED: Bacitracin Oint 1 GM U/D Packet TOP ONE (14:02)
--- NOTE | 2018-07-13 14:08 | EDM.PDOC ---
ED HPI GENERAL MEDICAL PROBLEM - General Chief Complaint: Bite:Animal, Insect Stated Complaint: DOG BITE ON LT HAND Time Seen by Provider: 07/13/18 14:03 Source of Information: Reports: Patient - History of Present Illness INITIAL COMMENTS - FREE TEXT/NARRATIVE: HISTORY AND PHYSICAL: History of present illness: []Patient presents with dog bite lesion on his left hand Seems to be a provoked attack/territorial response of his neighbors dog who is in a friend's yard, he was walking his dog the 2 dogs began to fight he went to separate the dogs in the neighbors dog bit his hand through the fence he does have a large flap lesion approximately 1 in. hyperthenar eminence of the left hand, is superficial does not penetrate deep tissues hand is neurovascularly intact tendon function intact pre-and post suture entire limb neurovascularly intact No fever nausea vomiting chills sweats Police notified and have taken history Review of systems: As per history of present illness and below otherwise all systems reviewed and negative. Past medical history: As per history of present illness and as reviewed below otherwise noncontributory. Surgical history: As per history of present illness and as reviewed below otherwise noncontributory. Social history: No reported history of drug or alcohol abuse. Family history: As per history of present illness and as reviewed below otherwise noncontributory. Physical exam: HEENT: Atraumatic, normocephalic, pupils reactive, negative for conjunctival pallor or scleral icterus, mucous membranes moist, throat clear, neck supple, nontender, trachea midline. Lungs: Clear to auscultation, breath sounds equal bilaterally, chest nontender. Heart: S1S2, regular, negative for clicks, rubs, or JVD. Abdomen: Soft, nondistended, nontender. Negative for masses or hepatosplenomegaly. Negative for costovertebral tenderness. Pelvis: Stable nontender. Genitourinary: Deferred. Rectal: Deferred. Extremities: Atraumatic, negative for cords or calf pain. Neurovascular unremarkable. Neuro: Awake, alert, oriented. Cranial nerves II through XII unremarkable. Cerebellum unremarkable. Motor and sensory unremarkable throughout. Exam nonfocal. Skin as per history of present illness otherwise unremarkable Diagnostics: [Clinical ] Therapeutics: [Tetanus status is updated 1 g Rocephin IM Augmentin 875 by mouth twice a day #20 no refill ] wound is cleansed and explored 5 mL of lidocaine for anesthesia #7 4-0 Prolene sutures interrupted Iodoform placed to keep a dependent portion of the lesion open Teachers out in 10 days Standard wound care instructions Police are obtained in [place] be status of the dog Patient declines rabies vaccination immunoglobulin at this time Impression: [] dog bite Definitive disposition and diagnosis as appropriate pending reevaluation and review of above. Left hand Pain Score (Numeric/FACES): 8 - Related Data Allergies Allergy/AdvReac Type Severity Reaction Status Date / Time Sulfa (Sulfonamide Allergy Rash Verified 07/13/18 12:57 Antibiotics) Home Meds: Home Meds Aspirin [Caitlin Chewable Aspirin] 81 mg PO BEDTIME 02/23/15 [History] FLUoxetine [PROzac] 20 mg PO BID 02/23/15 [History] Lisinopril 20 mg PO DAILY 02/23/15 [History] Metoprolol Succinate 50 mg PO DAILY 02/23/15 [History] Canagliflozin/Metformin HCl [Invokamet 50-1,000 mg Tablet] 1 each PO BID [History] Insulin Glarg,Human.Rec.Analog [LantUS Solostar] 20 unit SUBCUT BEDTIME [History] atorvaSTATin Calcium [Atorvastatin Calcium] 80 mg PO BEDTIME 12/10/16 [History] Ascorbic Acid [Vitamin C] 500 mg PO DAILY 12/23/16 [History] Fenofibrate 160 mg PO DAILY 12/23/16 [History] Multivitamin [Multivitamins] 1 tab PO DAILY 12/23/16 [History] Aspirin [Aspirin EC] 325 mg PO BID #60 tablet. 03/26/17 [Rx] Docusate Sodium 100 mg PO BID PRN #60 capsule 03/26/17 [Rx] Hydrocodone/Acetaminophen [Roland 7.5-325 Tablet] 1 each PO Q4H PRN #60 tablet [Rx] Past Medical History - Past Health History Medical/Surgical History: Denies Medical/Surgical History HEENT History: Reports: Other (See Below) Other HEENT History: wears glasses Cardiovascular History: Reports: High Cholesterol, Hypertension Respiratory History: Reports: None. Denies: Asthma, COPD Gastrointestinal History: Reports: Other (See Below) Other Gastrointestinal History: occasional heartburn Genitourinary History: Reports: Other (See Below) Other Genitourinary History: hx scrotal abscess Musculoskeletal History: Reports: Osteoarthritis Neurological History: Reports: Concussion Psychiatric History: Reports: Anxiety, Depression Endocrine/Metabolic History: Reports: Diabetes, Type II - Infectious Disease History Infectious Disease History: Reports: Chicken Pox - Past Surgical History Musculoskeletal Surgical History: Reports: Knee Replacement Social & Family History - Family History Family Medical History: Noncontributory - Caffeine Use Caffeine Use: Reports: Coffee Caffeine Use Comment: 2 cups/day ED ROS GENERAL - Review of Systems Review Of Systems: See Below ED EXAM, ANIMAL BITE - Physical Exam Exam: See Below Course - Vital Signs Last Recorded V/S: Last Vital Signs Temp 97.5 F 07/13/18 13:00 Pulse 79 07/13/18 13:00 Resp 15 07/13/18 13:00 BP 138/92 H 07/13/18 13:00 Pulse Ox 96 07/13/18 13:00 - Orders/Labs/Meds Orders: Active Orders 24 hr Category Date Time Status Vaccines to be Administered [RC] PER UNIT ROUTINE Care 07/13/18 13:08 Active Bacitracin [Bacitracin Oint 1 GM] Med 07/13/18 14:02 Once 1 dose TOP ONETIME ONE Medication Orders Bacitracin (Bacitracin Oint 1 Gm) 1 dose TOP ONETIME ONE Stop: 07/13/18 14:03 Meds: Medications Generic Name Dose Route Start Last Admin Trade Name Freq PRN Reason Stop Dose Admin Bacitracin 1 dose 07/13/18 14:02 Bacitracin Oint 1 Gm TOP 07/13/18 14:03 ONETIME ONE Discontinued Medications Generic Name Dose Route Start Last Admin Trade Name Freq PRN Reason Stop Dose Admin Diphtheria/Tetanus/Acell Pertussis 0.5 ml 07/13/18 13:08 Adacel IM 07/13/18 13:09 .ONCE ONE Ceftriaxone Sodium 1,000 mg/ 4 mls @ 4 mls/sec 07/13/18 13:08 Lidocaine HCl IM 07/13/18 13:09 ONETIME ONE Lidocaine HCl 5 ml 07/13/18 13:24 07/13/18 13:50 Xylocaine-Mpf 1% INJECT 07/13/18 13:25 Not Given ONETIME ONE Lidocaine HCl 10 ml 07/13/18 13:38 Xylocaine-Mpf 1% INJECT 07/13/18 13:39 ONETIME ONE Departure - Departure Time of Disposition: 14:06 Disposition: Home, Self-Care 01 Condition: Good Clinical Impression: Laceration, Animal bite - Discharge Information Referrals: PCP,None [Primary Care Provider] - Additional Instructions: Standard wound care instructions Keep wound clean and dry for 48 hours Return if symptoms persist or worsen despite treatment Suture removal in 10 days The following information is given to patients seen in the emergency department who are being discharged to home. This information is to outline your options for follow-up care. We provide all patients seen in our emergency department with a follow-up referral. The need for follow-up, as well as the timing and circumstances, are variable depending upon the specifics of your emergency department visit. If you don't have a primary care physician on staff, we will provide you with a referral. We always advise you to contact your personal physician following an emergency department visit to inform them of the circumstance of the visit and for follow-up with them and/or the need for any referrals to a consulting specialist. The emergency department will also refer you to a specialist when appropriate. This referral assures that you have the opportunity for follow-up care with a specialist. All of these measure are taken in an effort to provide you with optimal care, which includes your follow-up. Under all circumstances we always encourage you to contact your private physician who remains a resource for coordinating your care. When calling for follow-up care, please make the office aware that this follow-up is from your recent emergency room visit. If for any reason you are refused follow-up, please contact the [facility] emergency department at and asked to speak to the emergency department charge nurse. - My Orders Last 24 Hours: My Active Orders 07/13/18 13:08 Vaccines to be Administered [RC] PER UNIT ROUTINE 07/13/18 14:02 Bacitracin [Bacitracin Oint 1 GM] 1 dose TOP ONETIME ONE - Assessment/Plan Last 24 Hours: My Active Orders 07/13/18 13:08 Vaccines to be Administered [RC] PER UNIT ROUTINE 07/13/18 14:02 Bacitracin [Bacitracin Oint 1 GM] 1 dose TOP ONETIME ONE
[2018-07-13 14:34] VITALS: BP 108/71
== END 2018-07-13 14:25 | disposition home or self-care (01) ==
LOC: MW.ED 12:49
DX: S61.452A Open bite of left hand, initial encounter (principal); Z23 Encounter for immunization; Z88.2 Allergy status to sulfonamides; Z88.6 Allergy status to analgesic agent; Z79.4 Long term (current) use of insulin; Z79.899 Other long term (current) drug therapy; I10 Essential (primary) hypertension; E78.00 Pure hypercholesterolemia, unspecified; E11.9 Type 2 diabetes mellitus without complications; F41.9 Anxiety disorder, unspecified; F32.9 Major depressive disorder, single episode, unspecified; W54.0XXA Bitten by dog, initial encounter
CPT/HCPCS: 12002; 90471; 90715; 96372; 99283; J0696; J2001; 99282

== ENCOUNTER 2019-04-04 22:28 | Emergency (ER) | payer OTHER ==
--- NOTE | 2019-04-04 22:48 | EDM.PDOC ---
ED HPI GENERAL MEDICAL PROBLEM - General Chief Complaint: Skin Complaint Stated Complaint: REMOVE FISHING HOOK FROM FINGER Time Seen by Provider: 04/04/19 22:41 - History of Present Illness INITIAL COMMENTS - FREE TEXT/NARRATIVE: HISTORY AND PHYSICAL: History of present illness: Patient is a 53-year-old male with a history of diabetes hypertension dyslipidemia who presents with complaints of a fishhook in his left fourth distal finger. This occurred approximately 6 PM, almost 5 hours ago, and because the fish were biting the cut the end of the clock and continued fishing and is now here for evaluation. He said he tried to get it out but the gabrielle was catching. He has no other injuries to his hand and no systemic complaints. He says he is up-to-date on his tetanus shot Review of systems: As per history of present illness and below otherwise all systems reviewed and negative. Past medical history: As per history of present illness and as reviewed below otherwise noncontributory. Surgical history: As per history of present illness and as reviewed below otherwise noncontributory. Social history: No reported history of drug or alcohol abuse. Family history: As per history of present illness and as reviewed below otherwise noncontributory. Physical exam: General: Well-developed well-nourished overweight man who is nontoxic and vital signs are noted by me HEENT: Atraumatic, normocephalic, negative for conjunctival pallor or scleral icterus, mucous membranes moist, throat clear, neck supple, nontender, trachea midline. Lungs: Clear to auscultation, breath sounds equal bilaterally, chest nontender. Heart: S1S2, regular rate and rhythm no overt murmurs Abdomen: Soft, nondistended, nontender. NABS Pelvis: Deferred Genitourinary: Deferred. Rectal: Deferred. Extremities: Atraumatic, full range of motion of all extremities with the exception of the left ring finger. At the distal soft tissue tuft there is a small node of the stalk sticking out and there is tenderness in the area without any gross ecchymosis or erythema. The patient can flex and extend at the digit. There are no other injury seen on the digits of the left hand or the left hand itself Neurovascular unremarkable. Neuro: Awake, alert, oriented. Cranial nerves II through XII unremarkable. Cerebellum unremarkable. Motor and sensory unremarkable throughout. Exam nonfocal. Diagnostics: X-ray left fourth digit Therapeutics: Digital block with lidocaine without epinephrine, bacitracin and tube gauze Augmentin Procedure note: After the digital block was applied with lidocaine without epinephrine and the procedure was explained to the patient, and the x-ray was reviewed. A Betadine prep was performed and the small fragment of the fishhook was advanced forward and removed easily. There were no complications and the patient tolerated the procedure well. Bacitracin and a tube gauze will be applied Impression: Pryor to left fourth digit Definitive disposition and diagnosis as appropriate pending reevaluation and review of above. - Related Data Allergies Allergy/AdvReac Type Severity Reaction Status Date / Time Sulfa (Sulfonamide Allergy Rash Verified 04/04/19 22:45 Antibiotics) Home Meds: Home Meds Aspirin [Caitlin Chewable Aspirin] 81 mg PO BEDTIME 02/23/15 [History] FLUoxetine [PROzac] 1 tab PO BID 02/23/15 [History] Lisinopril 1 tab PO DAILY 02/23/15 [History] Metoprolol Succinate 1 tab PO DAILY 02/23/15 [History] atorvaSTATin Calcium [Atorvastatin Calcium] 1 tab PO BEDTIME 12/10/16 [History] Fenofibrate 1 tab PO DAILY 12/23/16 [History] Multivitamin [Multivitamins] 1 tab PO DAILY 12/23/16 [History] Insulin Glarg,Human.Rec.Analog [Lantus] 20 unit SQ BEDTIME 04/04/19 [History] Past Medical History - Past Health History Medical/Surgical History: Denies Medical/Surgical History HEENT History: Reports: Other (See Below) Other HEENT History: wears glasses Cardiovascular History: Reports: High Cholesterol, Hypertension Respiratory History: Reports: None. Denies: Asthma, COPD Gastrointestinal History: Reports: Other (See Below) Other Gastrointestinal History: occasional heartburn Genitourinary History: Reports: Other (See Below) Other Genitourinary History: hx scrotal abscess Musculoskeletal History: Reports: Osteoarthritis Neurological History: Reports: Concussion Psychiatric History: Reports: Anxiety, Depression Endocrine/Metabolic History: Reports: Diabetes, Type II - Infectious Disease History Infectious Disease History: Reports: Chicken Pox - Past Surgical History Musculoskeletal Surgical History: Reports: Knee Replacement Social & Family History - Family History Family Medical History: Noncontributory - Caffeine Use Caffeine Use: Reports: Coffee Caffeine Use Comment: 2 cups/day ED ROS GENERAL - Review of Systems Review Of Systems: ROS reveals no pertinent complaints other than HPI. ED EXAM, SKIN/RASH Exam: See Below (See dictation) Course - Vital Signs Last Recorded V/S: Last Vital Signs Temp 36.5 C 04/04/19 22:40 Pulse 107 H 04/04/19 22:40 Resp BP 128/77 04/04/19 22:40 Pulse Ox 94 L 04/04/19 22:40 - Orders/Labs/Meds Meds: Medications Discontinued Medications Generic Name Dose Route Start Last Admin Trade Name Susan PRN Reason Stop Dose Admin Lidocaine HCl 5 ml 04/04/19 22:48 Xylocaine-Mpf 1% INJECT 04/04/19 22:49 ONETIME ONE Departure - Departure Time of Disposition: 23:49 Disposition: Home, Self-Care 01 Condition: Good (Fish hook in finger) Clinical Impression: Fish hook injury of finger Qualifiers: Encounter type: initial encounter Laterality: left Qualified Code(s): S69.92XA - Unspecified injury of left wrist, hand and finger(s), initial encounter - Discharge Information Referrals: PCP,None [Primary Care Provider] - Forms: ED Department Discharge Additional Instructions: The following information is given to patients seen in the emergency department who are being discharged to home. This information is to outline your options for follow-up care. We provide all patients seen in our emergency department with a follow-up referral. The need for follow-up, as well as the timing and circumstances, are variable depending upon the specifics of your emergency department visit. If you don't have a primary care physician on staff, we will provide you with a referral. We always advise you to contact your personal physician following an emergency department visit to inform them of the circumstance of the visit and for follow-up with them and/or the need for any referrals to a consulting specialist. The emergency department will also refer you to a specialist when appropriate. This referral assures that you have the opportunity for followup care with a specialist. All of these measure are taken in an effort to provide you with optimal care, which includes your followup. Under all circumstances we always encourage you to contact your private physician who remains a resource for coordinating your care. When calling for followup care, please make the office aware that this follow-up is from your recent emergency room visit. If for any reason you are refused follow-up, please contact the [facility] emergency department at and ask to speak to the emergency department charge nurse. [facility] Primary care- Internal Medicine and Family [address] [address] Please keep area clean and dry using mild soap and water patting dry and applying a nonstick or gauze dressing. Do not use Band-Aids. There may be some drainage from the area. Please take antibiotics until they are finished. Return to ER as needed and as discussed and follow-up with clinic provider as needed for reevaluation and further care
--- NOTE | 2019-04-04 23:14 | CR ---
INDICATION: Fish hook in 4th digit TECHNIQUE: Finger radiograph 3 views left 4th COMPARISON: None FINDINGS: Bone: No acute fractures or aggressive bone lesions are identified. Joint: The metacarpophalangeal and interphalangeal joints are normal in appearance. Soft tissue: There is a metallic hook fragment within soft tissues of the distal 4th digit. It measures 8 mm in length. IMPRESSIONS: 1. No acute osseous injuries or abnormalities are noted. 2. There is a metallic hook fragment within soft tissues of the distal 4th digit. It measures 8 mm in length. Dictated by Edgardo Mitchell MD @ 04/04/2019 11:12:31 PM Dictated by: Edgardo Mitchell MD @ 04/04/2019 23:13:11 (Electronically Signed)
[2019-04-04] MEDS ORDERED: Bacitracin Oint 1 GM U/D Packet TOP ONE (23:51)
[2019-04-04] MEDS ORDERED: Amoxicillin/Clavulanate K 875-125 MG Tab PO ONE (23:51)
[2019-04-05 02:44] VITALS: BP 121/74
== END 2019-04-05 00:08 | disposition home or self-care (01) ==
LOC: MW.ED 22:28
DX: S60.455A Superficial foreign body of left ring finger, initial encounter (principal); W45.8XXA Other foreign body or object entering through skin, initial encounter
CPT/HCPCS: 36415; 64450; 73140; 80053; 80061; 82044; 83036; 85025; 99283; A9270; J2001

== ENCOUNTER 2019-07-25 06:31 | Day surgery (SDC) | payer OTHER ==
[~2019-07-25 06:31] MED LIST: Lactated Ringers 1,000 ML IV SCH; cefOXitin 2 GM in Premix Bag 1 BAG IV ONE
--- NOTE | 2019-07-25 07:06 | PCM.PREANE ---
Preanesthetic Assessment - Anesthesia/Transfusion/Family Hx Anesthesia History: Prior Anesthesia Reaction Other Type of Anesthesia Reaction Comment: has had Scopalamine patch in the past - worked well Family History of Anesthesia Reaction: No Transfusion History: No Prior Transfusion(s) Intubation History: Unknown - Review of Systems General: No Symptoms Pulmonary: No Symptoms Cardiovascular: No Symptoms, Orthopnea Gastrointestinal: No Symptoms, Other (h/o colon polyps '17) Other: Reports: None - Physical Assessment Height: 6 ft Weight: 127.006 kg ASA Class: 3 Mental Status: Alert & Oriented x3 Airway Class: Mallampati = 2 Dentition: Reports: Normal Dentition Thyro-Mental Finger Breadths: 3 Mouth Opening Finger Breadths: 3 ROM/Head Extension: Full Lungs: Clear to Auscultation, Normal Respiratory Effort Cardiovascular: Regular Rate, Regular Rhythm - Allergies Allergies/Adverse Reactions: Allergies Allergy/AdvReac Type Severity Reaction Status Date / Time sulfamethoxazole Allergy Hives Verified 07/20/19 16:28 [From Bactrim] trimethoprim [From Bactrim] Allergy Hives Verified 07/20/19 16:28 - Blood Blood Available: No - Anesthesia Plan Pre-Op Medication Ordered: None - Acknowledgements Anesthesia Type Planned: MAC Pt an Appropriate Candidate for the Planned Anesthesia: Yes Alternatives and Risks of Anesthesia Discussed w Pt/Guardian: Yes Pt/Guardian Understands and Agrees with Anesthesia Plan: Yes PreAnesthesia Questionnaire - Past Health History Medical/Surgical History: Denies Medical/Surgical History HEENT History: Reports: Other (See Below) Other HEENT History: wears glasses Cardiovascular History: Reports: High Cholesterol, Hypertension Respiratory History: Reports: None. Denies: Asthma, COPD Gastrointestinal History: Reports: Colon Polyp Other Gastrointestinal History: occasional heartburn Genitourinary History: Reports: Other (See Below) Other Genitourinary History: hx scrotal abscess Musculoskeletal History: Reports: Fracture, Osteoarthritis Other Musculoskeletal History: hx of fx toes, fingers and wrist Neurological History: Reports: Concussion Psychiatric History: Reports: Anxiety, Depression Endocrine/Metabolic History: Reports: Diabetes, Type II, IDDM, Obesity/BMI 30+ Hematologic History: Reports: None Immunologic History: Reports: None Oncologic (Cancer) History: Reports: None Dermatologic History: Reports: None - Infectious Disease History Infectious Disease History: Reports: Chicken Pox - Past Surgical History Head Surgeries/Procedures: Reports: None GI Surgical History: Reports: Colonoscopy Musculoskeletal Surgical History: Reports: Arthroscopic Knee, Hip Replacement, Knee Replacement Other Musculoskeletal Surgeries/Procedures:: left TKA , left TOD 2017 and knee arthroscopies x5 - SUBSTANCE USE Smoking Status *Q: Former Smoker Tobacco Use Within Last Twelve Months: No Recreational Drug Use History: Yes Recreational Drug Type: Reports: Cocaine (heavy user until ) - HOME MEDS Home Medications: Home Meds Aspirin [Caitlin Chewable Aspirin] 81 mg PO BEDTIME 02/23/15 [History] FLUoxetine [PROzac] 20 mg PO BID 02/23/15 [History] Lisinopril 20 mg PO QAM 02/23/15 [History] Metoprolol Succinate 50 mg PO BEDTIME 02/23/15 [History] atorvaSTATin Calcium [Atorvastatin Calcium] 80 mg PO BEDTIME 12/10/16 [History] Fenofibrate 160 mg PO DAILY 12/23/16 [History] Multivitamin [Multivitamins] 1 tab PO DAILY 12/23/16 [History] Insulin Glarg,Human.Rec.Analog [Lantus] 28 unit SQ BEDTIME 04/04/19 [History] Ascorbic Acid [Vitamin C] 500 mg PO DAILY 07/20/19 [History] Celecoxib [CeleBREX] 200 mg PO DAILY 07/20/19 [History] Dapagliflozin Propanediol [Farxiga] 10 mg PO QAM 07/20/19 [History] - CURRENT (IN HOUSE) MEDS Current Meds: Current Medications Lactated Ringer's (Ringers, Lactated) 1,000 mls @ 125 mls/hr IV ASDIRECTED LIZZY Discontinued Medications Cefoxitin Sodium 2 gm/ Premix 50 mls @ 100 mls/hr IV ONETIME ONE Stop: 07/25/19 06:29
[2019-07-25] MEDS ORDERED: Midazolam 1 MG/ML 2 ML SDV ONE (07:26)
[2019-07-25] MEDS ORDERED: Propofol 200 MG/20 ML SDV ONE ×2 (07:26→08:13)
--- NOTE | 2019-07-25 08:38 | PCM.OPNOTE ---
- General Post-Op/Procedure Note Date of Surgery/Procedure: 07/25/19 Operative Procedure(s): Colonoscopy Pre Op Diagnosis: Intermittent rectal bleeding. Personal history of colon polyps. Post-Op Diagnosis: Mild sigmoid diverticulosis Anesthesia Technique: MAC (ASA III) Primary Surgeon: Gamaliel Hayward Condition: Good Free Text/Narrative:: DICTATION [id number] CPT CODE [id number]
[2019-07-25] MEDS ORDERED: Lactated Ringers 1,000 ML IV SCH (08:45)
--- NOTE | 2019-07-25 08:54 | PCM.POSTAN ---
POST ANESTHESIA ASSESSMENT - MENTAL STATUS Mental Status: Alert, Oriented - VITAL SIGNS Vital Signs: Last Vital Signs Temp 36.8 C 07/25/19 07:12 Pulse 65 07/25/19 08:47 Resp 11 L 07/25/19 08:47 BP 133/91 H 07/25/19 08:47 Pulse Ox 94 L 07/25/19 08:47 - RESPIRATORY Respiratory Status: Respiratory Rate WNL, Airway Patent, O2 Saturation Stable - CARDIOVASCULAR CV Status: Pulse Rate WNL, Blood Pressure Stable - GASTROINTESTINAL GI Status: No Symptoms - PAIN Pain Score: 0 - POST OP HYDRATION Hydration Status: Adequate & Stable - OBSERVATIONS Free Text/Narrative:: no anesthesia problems
--- NOTE | 2019-07-25 09:22 | PCM48HPAN ---
Post Anesthesia Note - EVALUATION WITHIN 48HRS OF ANESTHETIC Vital Signs in Normal Range: Yes Patient Participated in Evaluation: Yes Respiratory Function Stable: Yes Airway Patent: Yes Cardiovascular Function Stable: Yes Hydration Status Stable: Yes Pain Control Satisfactory: Yes Nausea and Vomiting Control Satisfactory: Yes Mental Status Recovered: Yes Vital Signs: Last Vital Signs Temp 36.8 C 07/25/19 07:12 Pulse 65 07/25/19 08:47 Resp 11 L 07/25/19 08:47 BP 133/91 H 07/25/19 08:47 Pulse Ox 94 L 07/25/19 08:47 - COMMENTS/OBSERVATIONS Free Text/Narrative:: no anesthesia problems
[2019-07-25 09:54] VITALS: BP 133/77
--- NOTE | 2019-07-25 13:24 | OR ---
SURGEON: Gamaliel Hayward M.D. DATE OF PROCEDURE: 07/25/2019 OPERATION PERFORMED: Colonoscopy. PRIMARY SURGEON: Gamaliel Hayward M.D. ANESTHESIA: MAC. ASA CLASSIFICATION: III. PREOPERATIVE DIAGNOSES: 1. Intermittent rectal bleeding. 2. Personal history of colon polyps. POSTOPERATIVE DIAGNOSIS: Mild sigmoid diverticulosis. DESCRIPTION OF PROCEDURE: The patient was taken to the endoscopy room and positioned on the endoscopy table in the left lateral decubitus position. Time-out was called for appropriate identification of the patient and procedure. Monitored anesthesia care was provided. The colonoscope was inserted into the rectum and advanced with minimal difficulty to the cecum. The cecum was identified by internal landmarks and external pressure. The colonoscope was then retroflexed to visualize the ascending colon from below. The colonoscope was then slowly withdrawn. The cecum, ascending colon, hepatic flexure, transverse colon, splenic flexure, descending colon, sigmoid colon, and rectum were very well visualized. No tumors or polyps were encountered. There was no evidence of angiodysplasia or inflammatory bowel disease. A few very small diverticula were noted in the sigmoid colon. No inflammatory changes were noted. The colonoscope was withdrawn to the rectum and retroflexed to visualize the anal orifice from above. Again, no tumors or polyps were seen. There were no acute hemorrhoidal changes. The colonoscope was then straightened, the rectum aspirated, and the colonoscope removed. The patient tolerated the procedure well and was taken to recovery room in stable condition. YOUNG / VERONIKA /[id number]
== END 2019-07-25 09:10 | disposition home or self-care (01) ==
LOC: MW.SDS 06:31
PROVIDERS: ATTEND Surgery
DX: K62.5 Hemorrhage of anus and rectum (principal); K57.30 Diverticulosis of large intestine without perforation or abscess without bleeding; E11.9 Type 2 diabetes mellitus without complications; E78.5 Hyperlipidemia, unspecified; I10 Essential (primary) hypertension; M17.11 Unilateral primary osteoarthritis, right knee; F32.9 Major depressive disorder, single episode, unspecified; F41.9 Anxiety disorder, unspecified; E66.01 Morbid (severe) obesity due to excess calories; Z68.37 Body mass index [BMI] 37.0-37.9, adult; Z86.010 Personal history of colon polyps; Z88.2 Allergy status to sulfonamides; Z79.82 Long term (current) use of aspirin; Z79.899 Other long term (current) drug therapy; Z79.4 Long term (current) use of insulin; Z87.891 Personal history of nicotine dependence
CPT/HCPCS: 45378; 82962; J2250; J2704; J7120; 00811

== ENCOUNTER 2025-06-30 06:40 | Day surgery (SDC) | payer BC ==
[2025-06-30] MEDS: Lactated Ringers 1,000 ML IV SCH (07:11)
[2025-06-30] MEDS ORDERED: propofoL 500 MG/50 ML 50 ML ONE (07:13)
[2025-06-30] MEDS ORDERED: Propofol 200 MG/20 ML SDV ONE (08:20)
[2025-06-30] MEDS ORDERED: Lactated Ringers 1,000 ML IV SCH (08:30)
[2025-06-30 08:58] VITALS: PULSE 89
[2025-06-30 09:25] VITALS: BP 109/67
== END 2025-06-30 10:00 | disposition home or self-care (01) ==
LOC: MW.SDS 06:40
PROVIDERS: ATTEND Surgery
DX: Z12.11 Encounter for screening for malignant neoplasm of colon (principal); K57.30 Diverticulosis of large intestine without perforation or abscess without bleeding; E66.811 Obesity, class 1; E66.9 Obesity, unspecified; I10 Essential (primary) hypertension; E11.9 Type 2 diabetes mellitus without complications; Z88.8 Allergy status to other drugs, medicaments and biological substances; Z68.34 Body mass index [BMI] 34.0-34.9, adult; Z86.16 Personal history of COVID-19; Z79.82 Long term (current) use of aspirin; Z79.84 Long term (current) use of oral hypoglycemic drugs; Z79.899 Other long term (current) drug therapy; Z86.0100 Personal history of colon polyps, unspecified; Z87.891 Personal history of nicotine dependence; Z68.32 Body mass index [BMI] 32.0-32.9, adult
CPT/HCPCS: 45378; J2003; J2704; J7120; 00811